=== PATIENT | male | born 1995 ===

== ENCOUNTER 2017-11-18 15:05 | Emergency (ER) | payer BC, OTHER ==
--- OUTSIDE RECORDS SUMMARY | 2017-11-18 15:58 | XMS REPORT | Continuity of Care Document ---
:1995 External Reference #:[id number] Author Name Luz Alexander PA Address [address] [place] [address] Care Team Providers Name Role Phone Ildefonso Dia M.D. 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 [address] [place] [address] Advance Directives Description No Information Available Problems Date Description Provider Status Onset: 12/15/2012 Exacerbation of asthma Luz Alexander PA Active Onset: 12/15/2012 Disorder of upper respiratory Luz Alexander PA Active system Onset: 02/04/2014 Allergic rhinitis due to pollen Ildefonso Dia M.D. 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 ETOH Use Denies alcohol use Tobacco Use Reviewed: Patient has never smoked Pt used to chew has 05/17/17 stopped. Recreational Drug Use Denies Drug Use Smoking Status Reviewed: Patient has never smoked Pt used to chew has 05/17/17 stopped. Allergies, Adverse Reactions, Alerts Description No Known Drug Allergies Medications Medication Date Status Form Strength Qnty SIG Indications Ordering Provider Minocycline 05/17/ Active Capsules 100mg 60cap 1 by mouth L70.0 Ildefonso HCL 2018 s twice a day Mik goldberg M.D. Benzoyl 05/17/ Active Gel 2.5% 60gm use twice a L70.0 Ildefonso Peroxide 2018 day Mik goldberg M.D. Davide 05/17/ Active Pads 2% 60uni use twice a L70.0 Ildefonso 2017 ts day on face Castellan osKandis Amphetamine-De 05/17/ Active Tablets 20mg 60tab 1 twice a F90.0 Ildefonso xtroamphetamin 2017 s day Castellan e osKandis Proair HFA 11/01/ Active Aerosol 108(90Bas 1unit 2 puffs J45.998 Ildefonso 2012 e) s every 4 Castellan mcg/Act hours as os, MTramaine needed Amphetamine-De 05/24/ Hx Caps ER 15mg 30cap 1 daily Ildefonso xtroamphet ER 2018 - 24HR s Castellan 05/24/ osKandis 2018 Minocycline 11/04/ Hx Capsules 100mg 30cap 1 daily L70.0 Ildefonso HCL 2015 - s Castellan 09/08/ os, Kandis 2017 Azithromycin 04/02/ Hx Tablets 250mg 6tabs 2 now and 1 Ildefonso 2014 - daily x 4 Castellan 11/04/ days os, MTramaine 2016 Robitussin DM 04/02/ Hx Syrup 100-10mg/ 8oz 2 tsp q 4 Ildefonso 2015 - 5ML hrs prn Castellan 11/04/ osKandis 2016 Minocycline 03/01/ Hx Tablets 100mg 30tab 1 by mouth L70.0 Ildfeonso HCL 2015 - s once a day Castellan 11/04/ osKandis 2016 Clindamycin 02/04/ Hx Swab 1% 60uni use twice a L70.0 Ildefonso Phosphate 2013 - ts day Castellan 06/17/ osKandis 2017 Tretinoin 02/04/ Hx Cream 0.025% QS use at at 706.1 Ildefonso 2013 - bedtime Castellan 03/01/ sparingly os, MTramaine 2015 Symbicort 12/29/ Hx Aerosol 160-4.5mc 1unit one J45.998 Ildefonso 2012 - g/Act s inhalation Castellan 04/15/ bid os, MTramaine 2017 Augmentin 12/05/ Hx Tablets 875-125mg 20tab one bid 493.92 Ildefonso 2012 - s withfood Castellan 12/29/ osKandis 2013 Prednisone 12/05/ Hx Tablets 20mg 9tabs day 1and day 493.92 Ildefonso 2012 - two Castellan 12/29/ tablets os, M.D. 2012 qd,then day3,4,5 one qd,the one half tabletday 6,7,8,9 Zithromax 11/01/ Hx Tablets 250mg 6tabs as directed 462 Ildefonso Z-John 2012 - Castellan 12/29/ os, M.DNayeli 2012 Albuterol 11/01/ Hx Nebulizer (2.5mg/3M 75uni 1 493.90 Ildefonso Sulfate 2012 - L) 0.083% ts application Castellan 02/04/ q4h prn os, M.D. 2013 Flovent HFA 11/01/ Hx Aerosol 110mcg/Ac 1unit 2 puff bid 493.90 Ildefonso 2012 - t s Castellan 12/29/ os, M.DNayeli 2012 Immunizations CPT Code Status Date Vaccine Reaction Lot # [id number] Given 09/16/2016 Meningococcal conjugate risk & benefits Menveo [id number] vaccine Menveo discussed 34318 Given 11/05/2015 Influenza Hidose Flu Vac,Quad,Split=>3 Yrs [id number] 19239 Given 02/24/2015 Influenza >3 flu [id number] Vac,Quad,Split=>3 Yrs 77262 Given 02/04/2014 Flu Triv Old Code Flu>3yr [id number] 00839 Given 12/29/2012 Flu Triv Old Code flu [id number] 72204 Given 12/29/2012 HPV (Old Code) 3 Dose HPV [id number] Gardisil 68973 Given 12/29/2012 Hep A Ped/AD 2 Dose [id number] hep A 95596 Given 07/30/2011 HPV (Old Code) 3 Dose Gardasil 30710 Given 03/11/2011 HPV (Old Code) 3 Dose Gardasil 68781 Given 03/11/2011 Hep a Ped/AD 2 Dose 26792 Given 11/21/2007 Meningococcal conjugate vaccine Menveo 13223 Given 10/11/2006 Tdap Vaccine over 7 yrs old 05161 Given 10/26/2000 [place] & [place] [address] Given 10/26/2000 MMR 12053 Given 10/26/2000 OPV Polio 37260 Given 08/31/1996 Tetramune (DPT & Hib) 51741 Given 08/31/1996 MMR 73092 Given 1995 Hep B Vaccine - NB-19 Yrs (3 Dose) 13174 Given 1995 Tetramune (DPT & Hib) 95631 Given 1995 OPV Polio 30227 Given 1995 Tetramune (DPT & Hib) 46838 Given 1995 OPV Polio 27610 Given 1995 Hep B Vaccine - NB-19 Yrs (3 Dose) 28797 Given 1995 Tetramune (DPT & Hib) 48224 Given 1995 OPV Polio 12433 Given 1995 Hep B Vaccine - NB-19 Yrs (3 Dose) Vital Signs Date Vital Result Comment 10/19/2017 4:00pm Weight 177.00 lb BP Systolic 124 mmHg BP Diastolic 70 mmHg 05/17/2017 3:33pm Weight 180.50 lb BP Systolic 110 mmHg BP Diastolic 50 mmHg Height 72.25 inches 6'0.25" BMI (Body Mass Index) 24.3 kg/m2 09/08/2016 10:41am Weight 173.50 lb BP Systolic 92 mmHg BP Diastolic 66 mmHg Height 72 inches 6'0" BMI (Body Mass Index) 23.5 kg/m2 04/14/2016 11:17am Weight 182.00 lb BP Systolic 118 mmHg BP Diastolic 70 mmHg 11/05/2015 2:59pm Weight 174.00 lb BP Systolic 112 mmHg BP Diastolic 70 mmHg 02/04/2014 11:13am Weight 170.00 lb BP Systolic 110 mmHg BP Diastolic 60 mmHg Height 72 inches 6'0" Heart Rate 68 /min Body Temperature 97.5 F Respiratory Rate 16 /min Body Mass Index Percentile 59 % Height Percentile 81 % Weight Percentile 75th BMI (Body Mass Index) 23.1 kg/m2 12/29/2012 11:39am Weight 160.50 lb BP Systolic 116 mmHg BP Diastolic 78 mmHg Height 72 inches 6'0" Heart Rate 68 /min Body Temperature 97.7 F Respiratory Rate 16 /min Body Mass Index Percentile 51 % Height Percentile 84 % Weight Percentile 70th BMI (Body Mass Index) 21.8 kg/m2 12/20/2012 1:02pm Weight 160.00 lb BP Systolic 120 mmHg BP Diastolic 70 mmHg Weight Percentile 69th 12/05/2012 11:42am Weight 159.00 lb BP Systolic 110 mmHg BP Diastolic 76 mmHg Height 72 inches 6'0" Body Temperature 97.4 F O2 % BldC Oximetry 97 % Room Air Body Mass Index Percentile 49 % Height Percentile 83 % Weight Percentile 68th BMI (Body Mass Index) 21.6 kg/m2 Results Test Date Facility Test Result H/L Range Note Laboratory test 11/01/2012 [facility] Monoscreen Negative Negative 1 finding [phone] (Heterophile) Throat Strep Screen See Note 2 CBC W/Automated 11/01/2012 [facility] White Blood 17.4 K/uL High 4.5-13.5 Diff [phone] Count Red Blood Count 5.51 M/uL High 4.50-5.30 Hemoglobin 16.5 gm/dL High 13.0-16.0 Hematocrit 45.2 % 37.0-49.0 Mean Cell Volume 82.0 fl 77.0-95.0 Mean Corpuscular HGB 29.9 pg 25.0-30.0 Mean Corpuscular HGB Conc 36.5 g/dL High 31.7-36.0 Platelet Count 232 K/uL 150-400 Red Cell Distri Width SD 38.8 fl 36-51 Red Cell Distri Width %CV 13.0 % 11.6-15.8 Mean Platelet Volume 11.4 fL High 6.6-10.6 Laboratory test 11/01/2012 [facility] Anti Strep O NEGATIVE IU/mL Negative finding [phone] Screen Differential-WBC 11/01/2012 [facility] Total Cells 100 #CELLS Confirm [phone] Counted Band% 3 % Neutrophils% 91 % High 28-68 Lymph% 1 % Low 17-56 Monocyte% 5 % 0-10 Platelet Estimate NORMAL RBC Morphology NORMAL Xray 11/01/2012 [facility] chest Xray pa and lat <pending> [address] [place] [address] [phone] The sensitivity of Heterophile antibody testing is 80-90%. Lucas Ramos IgM testing offers higher sensitivity. 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 L70.0 Acne vulgaris Z23 Encounter for immunization Office Visit 02/04/2014 11:15a Main Office Ildefonso Dia V70.0 Examination M.D. General Medical Routine AT Health Care Facility 493.90 Asthma Unspec W/O Status Asthmaticus 305.1 Tobacco Use Disorder 706.1 Acne Other v04.81 Need For Prophylactic Vaccination & Inoculation/Influenza Office Visit 12/29/2012 11:00a Main Office Ildefonso Dia V70.0 Examination M.D. General Medical Routine AT Health Care Facility 493.90 Asthma Unspec W/O Status Asthmaticus V04.89 Need For Prophylactic Vaccination & Inoculation Other Virus V05.3 Viral Hepatitis Vaccination & Inoculation V04.81 Need For Prophylactic Vaccination & Inoculation/Influenza Office Visit 12/20/2012 1:00p Main Office Luz Alexander PA 493.92 Asthma Unspec W/ Acute Exacerbation 477.9 Rhinitis Allergic Cause Unspec Office Visit 12/05/2012 11:30a Main Office Luz Alexander PA 493.92 Asthma Unspec W/ Acute Exacerbation 478.9 Upper Resp Tract Disease Other & Unspec 466.0 Bronchitis Acute 477.9 Rhinitis Allergic Cause Unspec Office Visit 11/01/2012 1:45p Main Office Ildefonso Dia, 462 Pharyngitis Acute M.D. 493.90 Asthma Unspec W/O Status Asthmaticus Plan of Treatment Future Appointment(s):01/31/2018 3:00 pm - Luz Alexander, PA at [id number] - Luz Alexander, PAF90.0 Attention-deficit hyperactivity disorder, predominantly inatFollow up:one month
[2017-11-18 16:05] VITALS: BP 129/65
--- NOTE | 2017-11-18 16:22 | UC ---
General HPI - HPI Summary HPI Summary: 2 days ago on Tuesday evening, patient noted some soreness on his left palm. He now has sores on both palms and the soles of both feet as well as a sore throat and sores in his mouth. He states that his mother is a nurse and told him that she thinks he has qlia-becd-flz-mouth. - History of Current Complaint Chief Complaint: UCRash Stated Complaint: RASH ON HANDS AND FEET Time Seen by Provider: 11/18/17 16:03 Hx Obtained From: Patient Onset/Duration: Gradual Onset Timing: Constant Pain Intensity: 0 Alleviating: nothing Associated Signs & Symptoms: Negative: Fever - Allergy/Home Medications Allergies/Adverse Reactions: Allergies Allergy/AdvReac Type Severity Reaction Status Date / Time No Known Allergies Allergy Verified 11/18/17 16:04 PMH/Surg Hx/FS Hx/Imm Hx - Additional Past Medical History Additional PMH: acne, ADHD - Surgical History Surgical History: None - Family History Known Family History: Positive: None - Social History 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, 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 Lives: With Family Alcohol Use: Weekly Alcohol Amount: 2-3 times a week Substance Use Type: Marijuana Substance Use Comment - Amount & Last Used: rare Smoking Status (MU): Never Smoked Tobacco - Immunization History Vaccination Up to Date: Yes Review of Systems Constitutional: Negative Skin: Rash Eyes: Negative ENT: Sore Throat Respiratory: Negative Cardiovascular: Negative Gastrointestinal: Negative Genitourinary: Negative Motor: Negative Neurovascular: Negative Musculoskeletal: Negative Neurological: Negative Psychological: Negative Is Patient Immunocompromised?: No All Other Systems Reviewed And Are Negative: Yes Physical Exam Triage Information Reviewed: Yes Appearance: Well-Appearing Vital Signs: Initial Vital Signs Temp 98 F 11/18/17 15:59 Pulse 63 11/18/17 15:59 Resp 16 11/18/17 15:59 BP 129/65 11/18/17 15:59 Pulse Ox 99 11/18/17 15:59 Eyes: Positive: Conjunctiva Clear ENT: Positive: Pharyngeal erythema - with vesicles/ulcerations, TMs normal. Negative: Nasal congestion, Nasal drainage Neck: Positive: Supple, Nontender, No Lymphadenopathy Respiratory: Positive: Lungs clear, Normal breath sounds Cardiovascular: Positive: RRR, No Murmur Abdomen Description: Positive: Nontender, No Organomegaly, Soft Bowel Sounds: Positive: Present Musculoskeletal: Positive: ROM Intact Neurological: Positive: Alert Psychological: Positive: Age Appropriate Behavior Skin Exam: Normal Skin: Positive: rashes - slightly raises tender red spots to palms and soles of feet. Course/Dx - Differential Dx - Multi-Symptom Provider Diagnoses: hand foot mouth disease Discharge - Sign-Out/Discharge Documenting (check all that apply): Patient Departure All imaging exams completed and their final reports reviewed: No Studies - Discharge Plan Condition: Stable Disposition: HOME Prescriptions: Magic Mouth Was-BRITTANIE/MAAL/LIDO* 5 ml SWISH SPIT QID #120 ml Patient Education Materials: Hand, Foot, and Mouth Disease (ED) Referrals: Ildefonso Dia MD [Primary Care Provider] - 7 Days - Billing Disposition and Condition Condition: STABLE Disposition: Home
== END 2017-11-18 16:18 | disposition home or self-care (01) ==
LOC: UCCORT 15:05
DX: B08.4 Enteroviral vesicular stomatitis with exanthem (principal)
CPT/HCPCS: 99202; G0463